=== PATIENT | male | born 1985 | race Caucasian/White ===

== ENCOUNTER 2017-12-16 12:19 | Observation (INO) ==
[2017-12-16] MEDS ORDERED: Aspirin 325 MG TABLET PO ONE (12:24)
[2017-12-16] MEDS ORDERED: 0.9 % Sodium Chloride 1,000 ML IVC ONE (12:24)
--- NOTE | 2017-12-16 12:28 | Emergency Department Note ---
Disposition Clinical Impression: Palpitations, Sinus tachycardia Disposition: Admitted As Inpatient Condition: Fair Referrals: Zeyad Villafana PIPING SUPERVISOR [Primary Care Provider] - Forms: ED Satisfaction Letter Arrhythmia/Palpitations HPI - General Chief Complaint: ED Arrhythmia/Palpitations Stated Complaint: FAST HEART RATE Time Seen by Provider: 12/16/17 12:20 Source: patient Mode of arrival: private vehicle Limitations: no limitations Nursing Notes Reviewed: Yes Vital Signs Reviewed: Yes - History of Present Illness HPI Narrative: Patient relates in the last couple days he has had 2 episodes of feeling like his heart was racing. States the first was 3 days ago it lasted less than 30 minutes. They had called 911 and when the squad got there they had hoped him up to monitor and that was reportedly normal. He declined transport. States again today this has recurred about an hour and half prior to arrival. He states he was sitting down and his heart started racing, he felt hot and he then had an urge to urinate. He is able to stand and walk to and from the bathroom without dizziness or presyncopal complaints. He went to the urgent care where he felt like his heart was racing faster and he left the waiting room and is calm here. States he was starting to feel little bit of dizziness. He had thought that this could be secondary to asthma he did use an albuterol inhaler today. He denies chest pain but has a "itching" feeling in his chest. He denies associated diaphoresis, nausea but has had shortness of breath and that his breathing feels "slightly tight". Denies a lower extremity swelling, immobilization or injury. Denies any change in recent medications, caffeine, stimulant drug or energy preparation. He has not had remote episodes like this in the past. He states his usual heart rate runs at about 100. Patient does have history of elevated BMI have diabetes as well as a family history of heart disease. He otherwise does not have cardiac risk factors. Denies history of coronary disease, dysrhythmia, elevated cholesterol, DVT or PE. Pt Subjective Complaint: rapid heart beat, palpitations Onset (ago): minute(s) (90) Duration: intermittent Severity: moderate Context: occurred during rest Associated symptoms: Reports: shortness of breath. Denies: chest pain, syncope , near-syncope, nausea, vomiting, anxiety, diaphoresis, cough, paresthesias, muscle cramps - Related Data Home Medications Medication Instructions Recorded Confirmed Albuterol Sulfate [Albuterol 2 puff PO Q4-6H PRN 06/17/16 12/16/17 Inhaler] Glimepiride [Amaryl] 2 mg PO 0800 06/17/16 12/16/17 Losartan Potassium [Cozaar] 50 mg PO DAILY 06/17/16 12/16/17 Montelukast [Singulair] 10 mg PO DAILY 06/17/16 12/16/17 Zolpidem [Ambien] 5 mg PO HS 06/17/16 12/16/17 metFORMIN [Glucophage] 1,000 mg PO BIDWM 06/17/16 12/16/17 Allergies Allergy/AdvReac Type Severity Reaction Status Date / Time clarithromycin [From Biaxin] Allergy Diarrhea Verified 06/17/16 12:37 All systems ED: reviewed and negative except as stated. Past Medical History - Past Medical History Attestation: Yes The following information was validated with the patient. Source: patient, old records reviewed, nursing notes reviewed Medical history: Reports: asthma, diabetes, other. Denies: coronary artery disease, hyperlipidemia, hypertension Surgical history: Reports: orthopedic, other (Arm fixation), other (Circumcision ) Psychiatric history: Reports: no psych history - Social History Smoking Status: Former smoker Smokeless Tobacco Status: Yes (E-cig) Alcohol use: Reports: unknown Drug use: Reports: none Physical Exam - General Limitations: no limitations General appearance: alert, in no apparent distress - Head Head exam: atraumatic, normocephalic, normal inspection - Eye Eye exam: Present: normal appearance, PERRL, EOMI. Absent: scleral icterus, conjunctival injection - ENT ENT exam: normal exam, normal oropharynx, mucous membranes moist - Neck Neck exam: Present: normal inspection, full ROM, trachea midline - Chest Chest inspection: Present: normal inspection, symmetric chest wall rise - Respiratory Respiratory exam: Present: normal lung sounds bilaterally. Absent: respiratory distress, wheezes, prolonged expiratory phase - Cardiovascular Cardiovascular exam: Present: regular rate, normal rhythm, tachycardia, normal heart sounds. Absent: JVD - Abdominal Exam Abdominal exam: Present: soft, Non-Tender, normal bowel sounds. Absent: tenderness, distention, guarding, rebound, rigidity - Extremities Exam Extremities exam: Present: normal inspection, full ROM, normal capillary refill. Absent: tenderness, pedal edema, calf tenderness - Expanded Lower Extremity Exam Neurovascular/Tendon exam: Present: normal capillary refill. Absent: motor deficit, sensory deficit, tendon deficit Gait: observed and normal - Back Exam Back exam: Present: normal inspection, full ROM. Absent: tenderness, CVA tenderness (R), CVA tenderness (L) - Neurological Exam Neurological exam: Present: alert, oriented X3, normal gait - Psychiatric Psychiatric exam: Present: normal affect, normal mood. Absent: agitated, anxious - Skin Skin exam: Present: warm, dry, intact, normal color. Absent: cyanosis, diaphoresis, pallor Course Course Narrative: 1322: The patient's lab, EKG and imaging has been discussed with he and his significant other. He currently is without acute abnormality and he continues with some chest tightness. I advised that I will contact Dr. Crawley to discussed observation for continued monitoring and serial troponins. I do not see evidence for pulmonary embolus, malignant dysrhythmia or acute myocardial ischemia. I believe he is stable for observation at this facility. Vital Signs Temperature 100.2 F H 12/16/17 12:21 Pulse Rate 121 12/16/17 12:21 Respiratory Rate 18 12/16/17 12:21 Blood Pressure 156/86 12/16/17 12:21 O2 Sat by Pulse Oximetry 97 12/16/17 12:21 Temperature 100.2 F H 12/16/17 12:21 Pulse Rate 112 12/16/17 13:20 Respiratory Rate 18 12/16/17 13:20 Blood Pressure 138/76 12/16/17 13:20 O2 Sat by Pulse Oximetry 95 12/16/17 13:20 Oxygen Delivery Oxygen Delivery Room Air Arrhythmia/Palpitations - Differential Diagnosis Differential Diagnosis: Likely: palpitations, anxiety, sinus tachycardia, artial arrhythmia, supraventricular tachycardia, metabolic/electrolyte disturbance - Lab Data Lab results reviewed: Yes I reviewed the patient's lab results. Result diagrams: 12/16/17 12:30 12/16/17 12:30 Lab Results 12/16/17 12/16/17 12/16/17 Range/Units 12:30 12:30 12:30 WBC 6.9 (4.3-11.1) K/mcL RBC 4.93 (4.19-5.50) M/mcL Hgb 15.7 (12.9-16.9) g/dL Hct 43.7 (37.5-50.1) % MCV 88.6 (83.0-100.0) fL MCH 31.8 (28.0-33.3) pg MCHC 35.9 H (31.6-35.5) g/dL RDW 12.0 (11.5-14.5) % Plt Count 287 (140-400) K/mcL MPV 10.5 (9.4-12.4) fL Immature Gran % 0.7 (0-4) % Seg Neutrophils % 53.8 % Lymphocytes % 33.1 % Monocytes % 7.6 % Eosinophils % 4.1 % Basophils % 0.7 % Neutrophils # 3.7 (1.6-8.9) K/mcL Lymphocytes # 2.3 (0.6-4.6) K/mcL Monocytes # 0.5 (0.0-1.3) K/mcL Eosinophils # 0.3 (0.0-0.6) K/mcL Basophils # 0.1 (0.0-0.2) K/mcL PT 11.4 (9.4-12.1) Seconds INR 1.0 APTT 31.3 (26.0-36.0) Seconds D-Dimer 288 (0-500) ng/mLFEU Sodium 136 (136-145) mEq/L Potassium 4.3 (3.5-5.1) mEq/L Chloride 100 (98-107) mEq/L Carbon Dioxide 26 (23-29) mEq/L BUN 8 (6-20) mg/dL Creatinine 0.85 (0.70-1.30) mg/dL Est GFR ( Amer) > 60 (> 60) Est GFR (Non-Af Amer) > 60 (> 60) BUN/Creatinine Ratio 9 (6-26) Glucose 350 H (70-105) mg/dL Calculated Osmolality 294 (280-300) Calcium 9.5 (8.6-10.3) mg/dL Troponin I < 0.03 (< 0.04) ng/mL TSH 2.215 (0.340-5.600) mcIU/mL - Radiology Data Radiology results reviewed: Yes I reviewed the patient's radiology results. Single view chest x-ray is performed. This does not demonstrate evidence for infiltrate, effusion, pneumothorax, foreign body or heart failure. The cardiac silhouette is normal. I do not see abnormality to the osseous structures of the chest. This is on my interpretation. Impressions Chest X-Ray 12/16/17 12:24 IMPRESSION: No acute cardiopulmonary findings. D/ / Shona Dyson MD / Shona Dyson MD Interpreting Provider: Shona Dyson MD - EKG Data EKG attestation: Yes I reviewed and interpreted this EKG. EKG shows normal: sinus rhythm, axis, intervals, QRS complexes, ST-T waves Rate: tachycardia (128) Interpretation: no acute changes (Sinus tachycardia)
[2017-12-16 12:42] LABS: Basophils # 0.1 K/mcL (0.0-0.2); Basophils % 0.7 %; Eosinophils # 0.3 K/mcL (0.0-0.6); Eosinophils % 4.1 %; Hematocrit 43.7 % (37.5-50.1); Hemoglobin 15.7 g/dL (12.9-16.9); Immature Granulocytes % 0.7 % (0-4); Lymphocytes # 2.3 K/mcL (0.6-4.6); Lymphocytes % 33.1 %; Mean Corpuscular HGB Conc 35.9 g/dL (31.6-35.5); Mean Corpuscular Hemoglobin 31.8 pg (28.0-33.3); Mean Corpuscular Volume 88.6 fL (83.0-100.0); Mean Platelet Volume 10.5 fL (9.4-12.4); Monocytes # 0.5 K/mcL (0.0-1.3); Monocytes % 7.6 %; Neutrophils # 3.7 K/mcL (1.6-8.9); Platelet Count 287 K/mcL (140-400); Red Blood Count 4.93 M/mcL (4.19-5.50); Segmented Neutrophils % 53.8 %
[2017-12-16 12:52] LABS: Prothrombin Time 11.4 Seconds (9.4-12.1)
[2017-12-16 12:54] LABS: Activated Partial Thrombo Time 31.3 Seconds (26.0-36.0)
[2017-12-16 12:57] LABS: BUN/Creatinine Ratio 9 (6-26); Blood Urea Nitrogen 8 mg/dL (6-20); Calcium 9.5 mg/dL (8.6-10.3); Carbon Dioxide 26 mEq/L (23-29); Chloride 100 mEq/L (98-107); Glucose 350 mg/dL (70-105); Osmolality,Calculated 294 (280-300); Potassium 4.3 mEq/L (3.5-5.1); Sodium 136 mEq/L (136-145); eGFR For Non-African Americans > 60 (> 60)
[2017-12-16 13:01] LABS: Troponin I < 0.03 ng/mL (< 0.04)
[2017-12-16 13:15] LABS: Thyroid Stimulating Hormone 2.215 mcIU/mL (0.340-5.600)
[2017-12-16] MEDS ORDERED: Insulin Regular, Human 100 UNIT/ML SQ ONE (13:19)
[2017-12-16 13:51] LABS: Amphetamine Screen,Urine Negative ng/mL (Cutoff=1000); Barbiturate Screen,Urine Negative ng/mL (Cutoff=200); Benzodiazepines Screen,Urine Negative ng/mL (Cutoff=200); Cannabinoid Screen,Urine Negative ng/mL (Cutoff = 50); Cocaine Screen,Urine Negative ng/mL (Cutoff= 300); Opiate Screen,Urine Negative ng/mL (Cutoff=300); Phencyclidine Screen,Urine Negative ng/mL (Cutoff=25)
[2017-12-16] MEDS ORDERED: Dextrose Gel 15 GM/37.5 ML TUBE PO PRN ×2 (14:40)
[2017-12-16] MEDS ORDERED: *HR* Dextrose 50 % in Water (Syg) 50 ML SYRINGE IVP PRN (14:40)
[2017-12-16] MEDS ORDERED: 0.9 % Sodium Chloride 1,000 ML IVC SCH (14:40)
[2017-12-16] MEDS ORDERED: Naloxone 0.4 MG/ML INJ IVP PRN (14:40)
[2017-12-16] MEDS ORDERED: D5% in Water 1,000 ML IVC PRN (14:40)
--- NOTE | 2017-12-16 16:08 | Internal Med History&Physical ---
Date of Encounter: 12/16/17 Time of Encounter: 15:30 Assessment and Plan (1) Tachycardia Current visit: Yes Status: Acute EKG showed sinus tachycardia. He has been placed on telemetry. Echocardiogram will be ordered to further evaluate. (2) DM type 2 (diabetes mellitus, type 2) Current visit: Yes Status: Chronic Check hemoglobin A1c in a.m. Continue Amaryl, Glucophage, and Januvia. Qualifiers: Diabetes mellitus jail insulin use: without legal librarian use Diabetes mellitus complication status: without complication Qualified Code(s): E11.9 - Type 2 diabetes mellitus without complications (3) Hypertension Current visit: Yes Status: Chronic Continue Cozaar and monitor blood pressure. Qualifiers: Hypertension type: essential hypertension Qualified Code(s): I10 - Essential (primary) hypertension (4) Asthma Current visit: Yes Status: Chronic Inadequately controlled at present. Will add Symbicort. Qualifiers: Asthma severity: mild Asthma persistence: intermittent Asthma complication type: unspecified Qualified Code(s): J45.20 - Mild intermittent asthma, uncomplicated Internal Medicine - H&P: HPI Chief complaint: Tachycardia, dizziness, dyspnea Admitted From: Emergency Dept Plans for Post Hospital Care: Home History of present illness: Mr. Mann is a 32 year old male who came to emergency room stating he had abrupt onset of dizziness, tachycardia, near-syncope, and dyspnea while sitting at leisure approximately 11 AM the day of admission. He attended check blood pressure by cannot get a reading. He called his PCP office and was told he would have a short weight wait until he could be seen. He then drove himself to urgent care but felt the wait time was too long so came to emergency room. He was found to have narrow QRS tachycardia with rate approximately 120/m. He was stabilized admitted to [facility] for ongoing care needs. He reports a similar episode the unitizer hours of December 14 while lying in bed. The squad was called but he soon felt improved and did not come to the emergency room. He denies other previous similar episodes. Cardiovascular history is pertinent for hypertension but he denies [place] heart failure angina, angina equivalence, DVT or pulmonary embolus. He reports he was told he had an occasional "funky heart rhythm" in the past but was assured it was nothing serious. He does not know further details. He denies use of recreational drugs, diet pills, or significant OTC medications. He drinks 4-6 cups of coffee each morning but denies significant caffeine ingestion otherwise. His intake of caffeine has not changed in recent months. Family cardiac history is pertinent for a grandfather with chronic atrial fibrillation. Past Med Surg Social Fam HX - Past Medical History Medical history: asthma, diabetes, other Psychiatric history: no psych history - Past Surgical History Surgical History: orthopedic, other, other - Social History Smoking Status: Former smoker Smokeless Tobacco Status: Yes (E-cig) Alcohol use: rarely Drug use: none - Family History Father Hx Family Cardiac Disorders: Yes Hx Family Cancer: Yes Internal Medicine - H&P: Meds Albuterol Sulfate [Albuterol Inhaler] 2 puff PO Q4-6H PRN 06/17/16 [History] Glimepiride [Amaryl] 2 mg PO 0800 06/17/16 [History] Losartan Potassium [Cozaar] 50 mg PO DAILY 06/17/16 [History] Montelukast [Singulair] 10 mg PO DAILY 06/17/16 [History] Zolpidem [Ambien] 5 mg PO HS 06/17/16 [History] metFORMIN [Glucophage] 1,000 mg PO BIDWM 06/17/16 [History] 3 Allergy/AdvReac Type Severity Reaction Status Date / Time clarithromycin [From Biaxin] Allergy Diarrhea Verified 06/17/16 12:37 All Systems PM: A 10-system review of systems was performed and is negative for pertinent findings except as documented above in the HPI. Review of systems: Gen.: He states his weight has been stable the past few months Cardiovascular: As per history of present illness Respiratory: He smoked from age [age] and his used nicotine vapor inhaler since then. He was diagnosed with asthma at approximately age 14. He does not use home oxygen. GI: Denies disorders of his liver gallbladder or exocrine pancreas : He denies hematuria dysuria or kidney stones Neurologic: He denies large distribution strokes or seizures. Endocrine: He was diagnosed with DM 2 at age 18 but learned later he had actually had hyperglycemia since approximately age 14. He does not know his cholesterol status. He denies known thyroid disease. Hematology/oncology: He denies blood disorders cancers or anemia. Psychiatric: He denies anxiety depression or other mental health issues. [place] skeletal: He has had pain in the left great toe intermittently recently. He denies other bone joint or muscle disorders. - Constitutional Vitals: Temp Pulse Resp BP Pulse Ox 98.3 F 96 16 109/49 97 12/16/17 15:27 12/16/17 15:27 12/16/17 15:27 12/16/17 15:27 12/16/17 15:27 Exam: Gen.: He is a well-developed overweight male resting comfortably in bed who appears in no acute distress HEENT: Head is atraumatic and normocephalic. Eyes: EOMI. There is no scleral icterus. Mouth: Mucosa is moist. Neck: Supple and nontender. There is no thyromegaly or adenopathy noted. Heart: Regular without murmurs gallops or ectopics Lungs: No wheezes or crackles are heard. Abdomen: Soft and nontender. No masses or guarding are noted. Extremities: There is no cyanosis edema or clubbing noted. Dorsalis pedis and posttibial pulses are 2 over 2 bilaterally. Neurologic: Mental status: He is talkative and a good historian. Cranial nerves : Smile is symmetric. Forehead wrinkles bilaterally. Tongue protrudes midline. EOMI. Motor: There is no pronator drift. Cerebellar: Finger to nose is intact bilaterally. Skin: Warm and dry Internal Med - H&P Results - Labs CBC & Chem 7: 12/16/17 12:30 12/16/17 12:30
[2017-12-16] MEDS: Budesonide/Formoterol 160/4.5 1 PUFF INH IH SCH ×2 (16:57→20:39)
[2017-12-16] MEDS: Insulin LISPRO 300 UNITS/3 ML VIAL SQ SCH (17:44)
[2017-12-16] MEDS: *HR* Metformin 500 MG TABLET PO SCH (17:45)
[2017-12-17 03:10] LABS: BUN/Creatinine Ratio 13 (6-26); Blood Urea Nitrogen 9 mg/dL (6-20); Calcium 9.1 mg/dL (8.6-10.3); Carbon Dioxide 25 mEq/L (23-29); Chloride 103 mEq/L (98-107); Glucose 154 mg/dL (70-105); Osmolality,Calculated 286 (280-300); Sodium 137 mEq/L (136-145); eGFR For Non-African Americans > 60 (> 60)
[2017-12-17 03:11] LABS: Chol/HDL Ratio 4.5 (0-4.9); Magnesium 1.8 mg/dL (1.6-2.6)
[2017-12-17] MEDS ORDERED: *HR* Glimepiride 2 MG TABLET PO SCH (08:00)
[2017-12-17] MEDS: *HR* Metformin 500 MG TABLET PO SCH ×2 (08:18→17:41)
[2017-12-17] MEDS: Insulin LISPRO 300 UNITS/3 ML VIAL SQ SCH ×3 (08:18→17:38)
[2017-12-17] MEDS ORDERED: *HR* SitaGLIPtin 25 MG TABLET PO SCH (09:00)
[2017-12-17 10:09] LABS: Estimated Average Glucose 226 mg/dl; Hemoglobin A1C 9.5 %
[2017-12-17] MEDS: Budesonide/Formoterol 160/4.5 1 PUFF INH IH SCH (10:48)
[2017-12-17] MEDS: Albuterol 2.5 MG/3 ML NEBULIZER IH PRN ×3 (11:07→16:53)
[2017-12-17 14:48] VITALS: BP 124/71
--- NOTE | 2017-12-17 17:37 | Discharge Summary ---
Date of Encounter: 12/17/17 Time of Encounter: 17:25 - Discharge Diagnosis (1) Tachycardia Priority: Primary Status: Acute (2) DM type 2 (diabetes mellitus, type 2) Priority: Secondary Status: Chronic Qualifiers: Diabetes mellitus terminal worker insulin use: without intermediate use Diabetes mellitus complication status: without complication Qualified Code(s): E11.9 - Type 2 diabetes mellitus without complications (3) Hypertension Priority: Secondary Status: Chronic Qualifiers: Hypertension type: essential hypertension Qualified Code(s): I10 - Essential (primary) hypertension (4) Asthma Priority: Secondary Status: Chronic Qualifiers: Asthma severity: mild Asthma persistence: intermittent Asthma complication type: unspecified Qualified Code(s): J45.20 - Mild intermittent asthma, uncomplicated Hospital course: Mr. Mann is a 32 year old male who came to emergency room stating he had abrupt onset of dizziness, tachycardia, near-syncope, and dyspnea while sitting at leisure approximately 11 AM the day of admission. He attended check blood pressure by cannot get a reading. He called his PCP office and was told he would have a short weight wait until he could be seen. He then drove himself to urgent care but felt the wait time was too long so came to emergency room. He was found to have narrow QRS tachycardia with rate approximately 120/m. He was stabilized admitted to [facility] for ongoing care needs. Initial orders were written by the emergency room physician. I saw him on December 16 and performed the history and physical. I started him on Symbicort and encouraged him to decrease use of albuterol. His heart rate gradually slowed. Echocardiogram was done with final report pending at time of dictation. No significant abnormalities were reported by the collection systems technician performing the study. BN peptide returned normal at 9. Chest CT showed no acute pathology. I explained that excessive use of albuterol would cause tachycardia. Transitioning to scheduled Symbicort and using albuterol as rescue medication should lessen tachycardia. I also decrease Cozaar to 25 mg daily and started him on Toprol-XL 12.5 mg daily to assist in controlling the tachycardia. There were no new problems and on December 17 I felt he was stable for discharge home. He will follow with his PCP Zeyad Villafana CNP within 1 week. - Time Spent with Patient Total time spent providing and/or coordinating discharge services: - Discharge Medications Prescriptions: Budesonide/Formoterol 160/4.5 [Symbicort 160/4.5] 2 puff IH BIDR #1 hfa.aer.ad Budesonide/Formoterol 160/4.5 [Symbicort 160/4.5] 2 puff IH BIDR #1 hfa.aer.ad Metoprolol Succinate [Toprol Xl] 12.5 mg PO DAILY #15 tab.er.24h Metoprolol XL (24 HR) Succ [Toprol XL] 12.5 mg PO DAILY #15 tab.er.24h Home Medications: Albuterol Sulfate [Albuterol Inhaler] 2 puff PO Q4-6H PRN 06/17/16 [History] Glimepiride [Amaryl] 2 mg PO 0800 06/17/16 [History] Montelukast [Singulair] 10 mg PO DAILY 06/17/16 [History] Zolpidem [Ambien] 5 mg PO HS 06/17/16 [History] metFORMIN [Glucophage] 1,000 mg PO BIDWM 06/17/16 [History] Budesonide/Formoterol 160/4.5 [Symbicort 160/4.5] 2 puff IH BIDR #1 hfa.aer.ad 12/17/17 [Rx] Budesonide/Formoterol 160/4.5 [Symbicort 160/4.5] 2 puff IH BIDR #1 hfa.aer.ad 12/17/17 [Rx] Losartan Potassium [Cozaar] 25 mg PO DAILY #0 12/17/17 [Rx] Metoprolol Succinate [Toprol Xl] 12.5 mg PO DAILY #15 tab.er.24h 12/17/17 [Rx] Metoprolol XL (24 HR) Succ [Toprol XL] 12.5 mg PO DAILY #15 tab.er.24h 12/17/17 [Rx] Allergies/Adverse Reactions: 3 Allergy/AdvReac Type Severity Reaction Status Date / Time clarithromycin [From Biaxin] Allergy Diarrhea Verified 06/17/16 12:37 Date of admission: 12/16/17 13:48 Primary care physician: Zeyad Villafana CNP - Constitutional Vitals: Temp Pulse Resp BP Pulse Ox 97.4 F L 95 19 124/71 99 12/17/17 14:47 12/17/17 14:47 12/17/17 14:47 12/17/17 14:47 12/17/17 14:47 - Patient Status Disposition: Home, Self-Care Condition: Fair - Discharge Instructions Follow Up With: Zeyad Villafana, CHANCERY CLERK [Primary Care Provider] - 1 week - Diet and Activity Activity: resume usual activities as tolerated Diet: diabetic diet
--- NOTE | 2017-12-18 08:31 | Electrocardiograph Report ---
[address] [address] Test Date: 2017-12-16 Pat Name: David Mann Department: [id number] Room: [facility] Gender: M Security Compliance Engineer: Tom : [id number] Requested By: Lincoln Cisse Order Number: [id number] Reading MD: Andrew Figueredo Measurements Intervals [place] Rate: 128 P: 24 FL: 142 QRS: 73 QRSD: 94 T: 14 QT: 302 QTc: 378 Interpretive Statements SINUS TACHYCARDIA ABNORMAL RHYTHM ECG Electronically Signed On 12-18-2017 8:30:08 EDT by Andrew Figueredo
== END 2017-12-17 17:59 | disposition home or self-care (01) ==
LOC: INPPIK 12:19 → EMEROOPIK 12:19 → INPPIK 14:05
PROVIDERS: ADMIT Internal Medicine; ATTEND Internal Medicine